=== PATIENT | male | born 1990 | race Caucasian/White ===

== ENCOUNTER 2016-12-25 14:07 | Inpatient (IN) | payer BC, OTHER ==
[~2016-12-25] VITALS: Ht 185.4 cm; Wt 77.1 kg
[2016-12-25 20:15] VITALS: BP 128/78
[2016-12-25] MEDS ORDERED: BUPRENORPHINE HCL 2 MG TAB.SUBL SL PRN (20:15)
[2016-12-25] MEDS ORDERED: DICYCLOMINE HCL 20 MG TABLET PO PRN (20:15)
[2016-12-25] MEDS ORDERED: LORAZEPAM 2 MG/1 ML VIAL IM PRN (20:15)
[2016-12-25] MEDS ORDERED: MIRALAX 17 GM POWD.PACK PO PRN (20:15)
[2016-12-25] MEDS ORDERED: diphenhydrAMINE 50 MG CAPSULE PO PRN (20:15)
[2016-12-25] MEDS ORDERED: PROMETHAZINE HCL 25 MG/1 ML VIAL IM PRN (20:15)
[2016-12-25] MEDS ORDERED: ACETAMINOPHEN 325 MG TABLET PO PRN (20:15)
[2016-12-25] MEDS ORDERED: METHOCARBAMOL 750 MG TABLET PO PRN (20:15)
[2016-12-25] MEDS ORDERED: DIAZEPAM 5 MG TABLET PO PRN (20:15)
[2016-12-25] MEDS ORDERED: MAG HYDROX/AL HYDROX/SIMETH 30 ML LIQUID UDC PO PRN (20:15)
[2016-12-25] MEDS ORDERED: DIAZEPAM 10 MG TABLET PO PRN ×2 (20:15)
[2016-12-25] MEDS ORDERED: MAGNESIUM HYDROXIDE 30 ML LIQUID UDC PO PRN (20:15)
[2016-12-25] MEDS ORDERED: HYDROXYZINE PAMOATE 25 MG CAPSULE PO PRN (20:15)
[2016-12-25] MEDS ORDERED: CLONIDINE HCL 0.1 MG TABLET PO PRN (20:15)
[2016-12-25] MEDS ORDERED: LOPERAMIDE HCL 2 MG CAPSULE PO PRN ×2 (20:15)
--- NOTE | 2016-12-25 20:15 | NUR ---
ADMISSION NOTE: Patient is a 26 y.o male admitted at [facility] at approximately 2015pm of 12/25/16 for medically supervised withdrawal from Opiate & Benzo. Body search done and skin check performed in Room 323, no contraband found. Pt is 6'1" tall and weighs 170 lbs in a standing scale. Pt is cooperative during assessment. Patient is oriented to floor unit and room. Patient follows a regular diet at home with no known food and drug allergies. Pt wishes to be full Code. Patient is alert & oriented x4, ambulatory with a steady gait. Speech is clear and audible. Patient appears anxious but cooperative during interview. No shortness of breath noted. Respiration even & unlabored. Abdomen soft & non-distended. Bowel sounds active in all four quadrants. Complaints of nausea, no episode of vomiting. Patient complains of 3/10 body aches, mild headache. Bilateral hand tremors noted. Pt complains of sweating & chills. Initial COWS 6 CIWA 6 noted. Vitals upon admission: B/P 128/78, AK 71, Temp 98.0, RR 12, O2Sat 97%. Patient noted with past medical history of Anxiety, Depression, history of seizure d/t benzo withdrawal (last one was May 2016). Pt denies any thoughts of suicide in the past. Pt currently denies SI/HI. Pt was able to provide urine sample for drug screen upon admission and is voiding clear yellow urine with no problems. Substance use: 1. Xanax- Pt has been using since 16 years old. Pt uses 1 gram daily intravenously for the past month. Last use was 1 gram today 12/25/16 @ noon . 2. Heroin- Pt has been using since 19 years old. Pt uses 10mg daily PO for the past month. Last use was 10mg today 12/25/16. 3. Marijuana- Pt has been smoking since 16 years old. Pt smokes on an intermittent non-daily basis in an unknown amount. Last use was a couple of puffs on the day of admission 12/25/16. 4. Methamphetamine. Pt has been using since 19 years old. Pt uses intravenously on an intermittent non-daily basis in an unknown amount. Pt stated he used " a little bit" on the day of admission 12/25/16. Treatment History: [facility] in [place] ( Aug 2016 to Oct 2016) Patient denies being hospitalized in the last 30 days. Patient reports his longest period of sobriety was for 8 months from 2014 to 2015, pt unable to recall the month. Patient reports symptoms when he does not use as anxiety, body aches, nausea, seizures, runny nose, yawning, shaking & visual hallucinations. Patient smokes 20 cigarettes daily. Patient refused flu & pneumonia vaccines, educated patient risk & benefits but still refused. Patient does not have a PCP. Urine drug screen came back positive for Opiate & Cannabinoids. Fall & Seizure precautions are in place. All needs attended & met. Safety precautions are in place. Bed locked in lowest position. Both side rails padded & up. Call light within pt's reach. Will continue to monitor. Dr. Kaye seen pt. Awaiting for admission order. Will continue to monitor patient.
[2016-12-25 20:29] LABS: *AMPHETAMINE, URINE POSITIVE (NEGATIVE); *BARBITURATE, URINE NEGATIVE (NEGATIVE); *CANNABINOID, URINE POSITIVE (NEGATIVE); *COCCAINE, URINE NEGATIVE (NEGATIVE); *OPIATE, URINE POSITIVE (NEGATIVE); *PHENCYCLIDINE SCREEN,URINE NEGATIVE (NEGATIVE)
[2016-12-25 20:57] LABS: HEMATOCRIT 48.2 % (40.0-50.0); HEMOGLOBIN 15.9 g/dL (14.0-18.0); MEAN CORPUSCULAR HEMOGLOBIN 29.4 uug (27.0-31.0); MEAN CORPUSCULAR HGB CONC 33 g/dL (32.0-37.0); PLATELET COUNT (AUTO) 292 K/uL (150-450); RED BLOOD CELL COUNT(AUTO) 5.42 MIL/uL (4.70-6.10); RED CELL DISTRIBUTION WIDTH 11.9 % (11.5-14.5); WHITE BLOOD COUNT (AUTO) 7.1 K/uL (4.0-11.2)
[2016-12-25 21:08] LABS: LYMPHOCYTES % (MANUAL) 24 % (20-40); MONOCYTES % (MANUAL) 5 % (2-10); NEUTROPHILS % (MANUAL) 71 % (42-75); PLATELET ESTIMATE ADEQUATE
[2016-12-25 21:17] LABS: ETHANOL < 3 MG/DL (0-0)
[2016-12-25 21:19] LABS: ALANINE AMINOTRANSFERASE 31 U/L (16-63); ALBUMIN 4.7 g/dL (3.4-5.0); ALKALINE PHOSPHATASE 90 U/L (50-136); ASPARTATE AMINOTRANSFERASE 39 U/L (15-37); BILIRUBIN,TOTAL 0.9 mg/dL (0.2-1.0); CALCIUM 9.4 mg/dL (8.5-10.1); CHLORIDE 103 mmol/L (98-107); GFR 91 mL/min (>60); GLUCOSE 116 mg/dL (74-106); MAGNESIUM 2.2 mg/dL (1.8-2.4); SODIUM SERUM 143 mmol/L (136-145); TOTAL PROTEIN, SERUM 8.2 g/dL (6.4-8.2); UREA NITROGEN, BLOOD 9 mg/dL (7-18)
[2016-12-25 21:23] LABS: THYROID STIMULATING HORMONE 0.627 mIU/mL (0.358-3.740)
[2016-12-25 21:24] LABS: CARBON DIOXIDE 33 mmol/L (21-32)
[2016-12-25 21:27] LABS: HIV-1 p24 ANTIGEN NON REACTIVE (NONREACTIVE); HIV-1/2 ANTIBODY NON REACTIVE (NONREACTIVE)
[2016-12-25] MEDS ORDERED: DIAZEPAM 10 MG TABLET PO ONE (22:00)
[2016-12-25] MEDS: ONDANSETRON ODT 4 MG TAB.RAPDIS SL PRN (23:05)
[2016-12-25] MEDS: IBUPROFEN 600 MG TABLET PO PRN (23:05)
--- NOTE | 2016-12-25 23:05 | NUR ---
PRN Motrin & Zofran Patient complained of 3/10 body aches, nausea & mild ache. PRN Motrin & Zofran given as ordered. Will continue to monitor.
[2016-12-25] MEDS ORDERED: TRAZODONE 50 MG TABLET PO PRN (23:15)
[2016-12-26] VITALS: BP 124/75
--- NOTE | 2016-12-26 00:05 | NUR ---
PRN Reassessment Patient asleep in bed and appears comfortable. No facial grimacing noted. No shortness of breath noted. Will continue to monitor patient.
[2016-12-26] MEDS ORDERED: LOPE2CAP PO (02:07)
[2016-12-26] MEDS ORDERED: TOPI25TA8 PO (02:07)
[2016-12-26] MEDS ORDERED: CLON0.1T PO (02:07)
[2016-12-26] MEDS ORDERED: HYDR50CA PO (02:07)
[2016-12-26] MEDS ORDERED: TRAZ-147 PO (02:07)
[2016-12-26] MEDS ORDERED: EMTR1TAB12 PO (02:07)
[2016-12-26] MEDS ORDERED: FLUT16SP BNOSTRILS (02:07)
[2016-12-26] MEDS ORDERED: BUPR300T54 PO (02:07)
[2016-12-26 04:00] VITALS: BP 114/70
--- NOTE | 2016-12-26 07:13 | NUR ---
END OF SHIFT NOTE: Patient is a 26 y/o male admitted last night 12/25/16 at approximately 2015 for Opiate and Benzo dependence. Patient reported using Xanax 10mg daily, Heroin IV 1 gram daily for the past month. Pt also smokes Marijuana and uses Meth IV with an unknown amount on an intermittent non-daily basis. Patient with past medical history of Anxiety, Depression, and hx of Seizure(last one was May 2016). Patient is on regular diet with no known food and drug allergies. Full Code status. Seizure and fall precaution. Skin intact. Patient was placed on a 4-day Valium and 4-day Subutex taper to be started today @ 0900. Last COWS 6 CIWA 6. PRN Zofran & PRN was given to pt during my shift and were effective. Pt remained compliant with therapeutic plan. Pt remained stable and vitals remains WNL. Pt slept for a total of 6 hours. Pt consumed 355ml of fluids. Voided 3x with no bowel movement. All needs attended & met. Safety precautions are in place. Will endorse pt to day shift nurse.
--- NOTE | 2016-12-26 07:45 | NUR ---
Start of shift note; Received report from night nurse. Patient is a 26 y/o male admitted on 12/25/16 for Benzo/Opiate dependence. Patient reported taking Xanax PO 10mg/daily for 1 month, Heroin IV 1gram/daily fro 1 month, intermittent use of marijuana and intermittent use of Meth IV with unknown dose. Patient was placed on 4 day Valium and 4 day Subutex taper to start today.patient's last CIWA is 6 and last COWS is 6. Will continue to monitor patient.
[2016-12-26 08:00] VITALS: BP 105/66
[2016-12-26] MEDS ORDERED: TUBERCULIN,PURIF.PROT.DERIV. 5 TU/0.1 ML TEST ID ONE (09:00)
[2016-12-26] MEDS: DIAZEPAM 10 MG TABLET PO SCH ×3 (09:24→21:15)
[2016-12-26] MEDS: BUPRENORPHINE HCL 2 MG TAB.SUBL SL SCH ×3 (09:25→21:16)
[2016-12-26] MEDS: GABAPENTIN 400 MG CAPSULE PO SCH ×3 (09:25→21:00)
[2016-12-26] MEDS: MULTIVITAMINS,THERAPEUTIC TABLET PO SCH (09:25)
[2016-12-26 12:00] VITALS: BP 128/75
[2016-12-26] MEDS ORDERED: HYDROXYZINE PAMOATE 25 MG CAPSULE PO PRN (12:00)
[2016-12-26] MEDS: buPROPion XL 150 MG TAB.SR.24H PO SCH (12:14)
[2016-12-26] MEDS: ONDANSETRON ODT 4 MG TAB.RAPDIS SL PRN (14:27)
--- NOTE | 2016-12-26 14:27 | NUR ---
PRN medication; Patient is complaining of nausea, PRN Zofran 4mg ODT given. Will continue to monitor patient.
--- NOTE | 2016-12-26 15:27 | NUR ---
Re-assessment; Patient denies Nausea and vomiting at this time. PRN medication is effective.
[2016-12-26 16:00] VITALS: BP 115/71
[2016-12-26] MEDS ORDERED: FLUTICASONE NS PRN (16:00)
--- NOTE | 2016-12-26 18:06 | NUR ---
End of shift; Patient is AOX4. Patient is a 26 y/o male admitted on 12/25/16 for Benzo/Opiate dependence. Patient reported taking Xanax PO 10mg/daily for 1 month, Heroin IV 1gram/daily fro 1 month, intermittent use of marijuana and intermittent use of Meth IV with unknown dose. Patient was placed on 4 day Valium and 4 day Subutex taper started today, no adverse reactions noted. Patient remained compliant with treatment plan. Medications were effective in reducing withdrawals symptoms. Met all needs.
--- NOTE | 2016-12-26 19:30 | NUR ---
START OF SHIFT NOTE: Patient is a 26 y/o male admitted last night 12/25/16 at approximately 2015 for Opiate and Benzo dependence. Patient reported using Xanax 10mg daily, Heroin IV 1 gram daily for the past month. Pt also smokes Marijuana and uses Meth IV with an unknown amount on an intermittent non-daily basis. Patient with past medical history of Anxiety, Depression, and hx of Seizure(last one was May 2016). Patient is on regular diet with no known food and drug allergies. Full Code status. Seizure and fall precaution. Skin intact. Patient is on a 4-day Valium and 4-day Subutex taper and tolerating well. Last COWS is 6 CIWA 4 noted. PRN Zofran was given to pt for nausea during day shift. Patient is alert & oriented x4. No shortness of breath noted. Respiration even & unlabored. Abdomen soft & non-distended. Bowel sounds active in all four quadrants. Pt complaints of nausea. No episode of vomiting noted. Patient has 5/10 leg and back pain. Pateint noted to be anxious and restless. Patient complains of sweating, chills and mild headache. Bilateral hand tremors felt. No hallucinations noted. Patient denies SI/HI. Safety precautions are in place. Bed locked in lowest position. Both side rails up. Call light within pt's reach. Will continue to monitor patient.
[2016-12-26 20:00] VITALS: BP 137/91
--- NOTE | 2016-12-26 21:00 | NUR ---
Refused medication Patient refused scheduled Gabapentin at 2100. Papa patient he does not really need it at this time. Explained to patient risk and benefits but still refused. Will continue to monitor patient.
[2016-12-26] MEDS: IBUPROFEN 600 MG TABLET PO PRN (21:16)
--- NOTE | 2016-12-26 21:16 | NUR ---
Prn Motrin Patient complained of 5/10 back and leg pain. Pt noted to be restless. PRN Motrin given as ordered. Will continue to monitor patient.
--- NOTE | 2016-12-26 22:16 | NUR ---
Prn Reassessment Patient verbalized relief from back and leg pain. 2/10 pain noted at this time. Patient appears comfortable lying in bed. PRN medication effective. Will continue to monitor patient.
[2016-12-27] VITALS: BP 126/75
[2016-12-27] MEDS: TRAZODONE 50 MG TABLET PO PRN (01:22)
--- NOTE | 2016-12-27 01:22 | NUR ---
Prn Trazodone Patient complains of insomnia. PRN Trazodone given as ordered. Patient lying in bed with no s/s of distress noted. Will continue to monitor patient.
[2016-12-27 04:00] VITALS: BP 125/77
--- NOTE | 2016-12-27 07:04 | NUR ---
Start of Shift Endorsement received from nightshift nurse. Pt is a 26 y/o male admitted for Xanax and Heroin dependence. Pt has been placed on a 4 day Valium and 4 day Subutex taper. Pt is moderately withdrawing at this time AEB CIWA 8, COWS 7. Pt received PRN Motrin and Trazodone. Pt slept 7 hours. PT is alert and oriented x4. VS WNL, Full Code. Remains compliant with medication and diet regimen. All needs have been met, All safety measures in place per hospital policy. Bed in lowest position, side rails up x2, call-light within reach. Will continue to monitor
--- NOTE | 2016-12-27 07:07 | NUR ---
END OF SHIFT NOTE: Patient is a 26 y/o male admitted last night 12/25/16 at approximately 2015 for Opiate and Benzo dependence. Patient reported using Xanax 10mg daily, Heroin IV 1 gram daily for the past month. Pt also smokes Marijuana and uses Meth IV with an unknown amount on an intermittent non-daily basis. Patient with past medical history of Anxiety, Depression, and hx of Seizure(last one was May 2016). Patient is on regular diet with no known food and drug allergies. Full Code status. Seizure and fall precaution. Skin intact. Patient is on a 4-day Valium and 4-day Subutex taper and tolerating well. COWS 7 CIWA 8. PRN Motrin for body aches & Trazodone for sleep were given to pt during my shift and were effective. Pt remained stable and vitals remains WNL. Pt slept for a total of 7 hours. Pt consumed 855 ml of fluids. Voided 3x with no bowel movement. All needs attended & met. Safety precautions are in place. Will endorse pt to day shift nurse.
[2016-12-27 08:16] VITALS: BP 111/80
[2016-12-27] MEDS ORDERED: BUPRENORPHINE HCL 2 MG TAB.SUBL SL SCH (09:00)
[2016-12-27] MEDS: DIAZEPAM 5 MG TABLET PO SCH ×4 (09:04→20:59)
[2016-12-27] MEDS: buPROPion XL 150 MG TAB.SR.24H PO SCH (09:04)
[2016-12-27] MEDS: MULTIVITAMINS,THERAPEUTIC TABLET PO SCH (09:04)
[2016-12-27] MEDS: GABAPENTIN 400 MG CAPSULE PO SCH ×3 (09:04→20:59)
[2016-12-27] MEDS: TRUVADA PO SCH (09:04)
[2016-12-27 12:00] VITALS: BP 108/58
[2016-12-27] MEDS: BUPRENORPHINE HCL 2 MG TAB.SUBL SL SCH ×2 (14:25→21:00)
[2016-12-27 14:27] LABS: HCV AB <0.1 s/co ratio (0.0-0.9); HEPATITIS B CORE AB, IgM Negative (Negative); HEPATITIS B SURFACE AG Negative (Negative)
[2016-12-27 16:00] VITALS: BP 112/54
--- NOTE | 2016-12-27 18:55 | NUR ---
end of Shift Endorsement given to nightshift nurse. Pt is a 26 y/o male admitted for Xanax and Heroin dependence. Pt has been placed on a 4 day Valium and 4 day Subutex taper. Pt is mildly withdrawing at this time AEB CIWA 3, COWS 5. No PRN medications were administered. 0900 Subutex was held due to low BP. Pt participated in groups and activities. Intake: 790ml, Void x3, BM x0. PT is alert and oriented x4. VS WNL, Full Code. Remains compliant with medication and diet regimen. All needs have been met, All safety measures in place per hospital policy. Bed in lowest position, side rails up x2, call-light within reach. Will continue to monitor
--- NOTE | 2016-12-27 19:30 | NUR ---
START OF SHIFT-- Pt is a 26 y/o male admitted for Xanax and Heroin dependence. Pt has been placed on a 4 day Valium and 4 day Subutex taper,tolerating well.Last CIWA 3, COWS 5. PT is alert and oriented x4. VS WNL, Full Code.NKA.PMH of anxiety,depression and seizure x 1 d/t benzo withdrawals. Pt is compliant with medication and diet regimen.No c/o pain or distress noted. All safety measures in place per hospital policy. Bed in lowest position, side rails up x2, call-light within reach. Will continue to monitor.
[2016-12-27 20:00] VITALS: BP 111/61
[2016-12-28] VITALS: BP 107/58
--- NOTE | 2016-12-28 04:00 | NUR ---
V/S,COWS AND CIWA REFUSED-- PT IN DEEP SLEEP.REFUSED V/S COWS AND CIWA.ALL SAFETY MEASURES IN PLACE.NO S/S OF DISTRESS NOTED.
--- NOTE | 2016-12-28 06:43 | NUR ---
END OF SHIFT-- Pt is a 26 y/o male admitted for Xanax and Heroin dependence.On regular diet,full code,no known allergies.PMH of anxiety,depression and seizures d/t benzo withdrawals.Pt has been placed on a 4 day Valium and 4 day Subutex taper. Pt is tolerating well.Last CIWA 1, COWS 2. No PRN medications were given last night. PT is alert and oriented x4. VS WNL, Full Code. Remains compliant with medication and diet regimen.Pt slept 9 hrs;fluid intake was 1100 mls,urine x 1. All needs have been met, All safety measures in place per hospital policy. Bed in lowest position, side rails up x2, call-light within reach. Will continue to monitor.
--- NOTE | 2016-12-28 07:07 | NUR ---
Start of Shift Endorsement received from nightshift nurse. Pt is a 26 y/o male admitted for Xanax and Heroin dependence. Pt has been placed on a 4 day Valium and 4 day Subutex taper. Pt is mildly withdrawing at this time AEB CIWA 2, COWS 1. Pt received did not receive any PRN medications. Pt reports sleeping 9 hours. PT is alert and oriented x4. VS WNL, Full Code. Remains compliant with medication and diet regimen. All needs have been met, All safety measures in place per hospital policy. Bed in lowest position, side rails up x2, call-light within reach. Will continue to monitor
[2016-12-28 08:00] VITALS: BP 92/63
[2016-12-28] MEDS: BUPRENORPHINE HCL 2 MG TAB.SUBL SL SCH ×3 (09:04→21:05)
[2016-12-28] MEDS: GABAPENTIN 400 MG CAPSULE PO SCH ×3 (09:04→21:00)
[2016-12-28] MEDS: buPROPion XL 150 MG TAB.SR.24H PO SCH (09:04)
[2016-12-28] MEDS: MULTIVITAMINS,THERAPEUTIC TABLET PO SCH (09:05)
[2016-12-28] MEDS: TRUVADA PO SCH (09:05)
[2016-12-28] MEDS: DIAZEPAM 5 MG TABLET PO SCH ×2 (09:05→14:59)
[2016-12-28 12:00] VITALS: BP 112/75
[2016-12-28 16:00] VITALS: BP 123/74
[2016-12-28] MEDS: ONDANSETRON ODT 4 MG TAB.RAPDIS SL PRN (17:07)
--- NOTE | 2016-12-28 19:19 | NUR ---
End of Shift Endorsement given to nightshift nurse. Pt is a 26 y/o male admitted for Xanax and Heroin dependence. Pt has been placed on a 4 day Valium and 4 day Subutex taper. Pt is mildly withdrawing at this time AEB CIWA 1, COWS 1. Pt received PRN Zofran at 1717 for reported emesis and nausea, administered Zofran. Medication was effective upon re-assessment. . Pt participated in group. Intake: 1500ml, Void x3, BM x0. PT is alert and oriented x4. VS WNL, Full Code. Remains compliant with medication and diet regimen. All needs have been met, All safety measures in place per hospital policy. Bed in lowest position, side rails up x2, call-light within reach. Will continue to monitor
--- NOTE | 2016-12-28 19:30 | NUR ---
START OF SHIFT NOTE: Patient is a 26 y/o male admitted last night 12/25/16 at approximately 2015 for Opiate and Benzo dependence. Patient reported using Xanax 10mg daily, Heroin IV 1 gram daily for the past month. Pt also smokes Marijuana and uses Meth IV with an unknown amount on an intermittent non-daily basis. Patient with past medical history of Anxiety, Depression, and hx of Seizure(last one was May 2016). Patient is on regular diet with no known food and drug allergies. Full Code status. Seizure and fall precaution. Skin intact. Patient is on a 4-day Valium and 4-day Subutex taper and tolerating well. Last COWS is 1 CIWA 1 noted. PRN Zofran was given to pt for nausea during day shift. Pt noted with 1 episode of vomiting during day shift. Patient is alert & oriented x4. No shortness of breath noted. Respiration even & unlabored. Abdomen soft & non-distended. Bowel sounds active in all four quadrants. Pt complaints of nausea. Patient has 4/10 body aches & Patient complains of stomach cramps, sweating, chills and mild headache. Bilateral hand tremors felt. No hallucinations noted. Patient denies SI/HI. Safety precautions are in place. Bed locked in lowest position. Both side rails up. Call light within pt's reach. Will continue to monitor patient.
[2016-12-28 20:00] VITALS: BP 109/69
[2016-12-28] MEDS ORDERED: DIAZEPAM 5 MG TABLET PO SCH (21:00)
[2016-12-28] MEDS: IBUPROFEN 600 MG TABLET PO PRN (21:05)
--- NOTE | 2016-12-28 21:05 | NUR ---
PRN Motrin & Bentyl Patient complaining of 4/10 body ache, mild headache & stomach cramps. Patient noted to be restless. PRN Bentyl & Motrin given as ordered. Will monitor for effectiveness of medication.
--- NOTE | 2016-12-28 22:05 | NUR ---
PRN Reassessment Patient verbalized relief from pain & discomfort. Patient appears calm & comfortable lying in bed. PRN medication effective. Will continue to monitor patient.
[2016-12-29] VITALS: BP 108/56
[2016-12-29] MEDS: TRAZODONE 50 MG TABLET PO PRN (00:21)
--- NOTE | 2016-12-29 00:21 | NUR ---
Prn Trazodone Patient complains of insomnia. PRN Trazodone given as ordered. Patient lying in bed with no s/s of distress noted. Will continue to monitor patient.
--- NOTE | 2016-12-29 04:00 | NUR ---
Vitals/Cows/Ciwa deferred Patient refused vitals at this time. Patient asleep in bed and appears comfortable. No shortness of breath noted. Respiration even & unlabored. Will continue to monitor.
--- NOTE | 2016-12-29 07:13 | NUR ---
END OF SHIFT NOTE: Patient is a 26 y/o male admitted 12/25/16 for Opiate and Benzo dependence. Patient reported using Xanax 10mg daily, Heroin IV 1 gram daily for the past month. Pt also smokes Marijuana and uses Meth IV with an unknown amount on an intermittent non-daily basis. Patient with past medical history of Anxiety, Depression, and hx of Seizure(last one was May 2016). Patient is on regular diet with no known food and drug allergies. Full Code status. Seizure and fall precaution. Skin intact. Patient is on a 4-day Valium and 4-day Subutex taper and tolerating well. Last COWS 5 CIWA 5. PRN Motrin for body aches, Bentyl for stomach cramps & Trazodone for sleep were given to pt during my shift and were effective. Pt remained stable and vitals remains WNL. Pt remained compliant with treatment plan Pt slept for a total of 7 hours. Pt consumed 1000 ml of fluids. Voided 2x with 1x bowel movement. All needs attended & met. Safety precautions are in place. Will endorse pt to day shift nurse.
--- NOTE | 2016-12-29 07:53 | NUR ---
BEGINNING OF SHIFT Patient endorsement report received from field administrator nurse, all pertinent information discussed. patient is a 26 year old male admitted on 12/25/2016 with admitting Dx: bzo/opiate dependence. Patient with substance use history of: Xanax po 10mg a day for one month, heroin iv 1 gram daily for one month, marijuana unknown amount intermittent amt on a daily basis for one month, and methamphetamine iv unknown amount intermitted non daily basis for one month, patient placed a 4 day day Valium and 4 day Subutex taper and is currently on day 4 of taper, as per field administrator patient with last cow score of: 5 and last ciwa score of: 5, and slept for 7 hours. Patient in bed with eyes closed respirations even and unlabored, received PRN: Bentyl, trazodone, and Motrin, per field administrator medication effective, will educated regarding plan of care for the day and medication with regimen, and discharge instructions. with good verbal understanding. safety measures in place. call light with in reach, will construes to monitor closely.
[2016-12-29 08:13] VITALS: BP 111/65
[2016-12-29] MEDS: TRUVADA PO SCH (08:47)
[2016-12-29] MEDS: MULTIVITAMINS,THERAPEUTIC TABLET PO SCH (08:47)
[2016-12-29] MEDS: DIAZEPAM 2 MG TABLET PO SCH ×2 (08:47→21:00)
[2016-12-29] MEDS: buPROPion XL 150 MG TAB.SR.24H PO SCH (08:47)
[2016-12-29] MEDS: BUPRENORPHINE HCL 2 MG TAB.SUBL SL SCH ×2 (08:48→21:00)
[2016-12-29] MEDS: GABAPENTIN 400 MG CAPSULE PO SCH ×3 (08:51→21:00)
[2016-12-29] MEDS ORDERED: DIAZEPAM 5 MG TABLET PO SCH (09:00)
[2016-12-29 12:12] VITALS: BP 118/72
[2016-12-29 17:22] VITALS: BP 112/68
--- NOTE | 2016-12-29 18:54 | NUR ---
END OF SHIFT Patient alert and oriented x4, compliant with therapeutic plan of care, vital signs with in normal limits during shift. Patient continues on Valium and Subutex taper as ordered, is currently on day 4 of taper well tolerated, no ASE. Patient with admitting Dx: bzo/opiate dependence. 0900 assessment patient presented with: c/o chills, moist eyes, tremors that can be felt but not seen, mild anxiety and barely sweating and head fullness with cow score of: 4 and ciwa score of: 5; 1300 assessment patient presented with: c/o chills, moist eyes, tremors that can be felt but not seen, mild anxiety and mild head fullness with cow score of: 4 and ciwa score of: 4: 1700 assessment patient presented with moist eyes, tremors benitez can be felt but not seen, and mild anxiety with cow score of: 3 and ciwa score of: 2. PPD was read during shift, negative. Patient was administered no PRNs during shift. Patient encouraged increase in PO fluid intake as tolerated. Patients abdomen is soft and non distended, bowel sounds heard in all quadrats. no episodes of N/V/D noted. Safety measures in place. call light with in reach, patient endorsed to night shift manager nurse, all pertinent information discussed.
--- NOTE | 2016-12-29 19:30 | NUR ---
START OF SHIFT-- Patient 26 Y/O male,admitted for opiate and benzo dependency;A/O x4, compliant with therapeutic plan of care, vital signs with in normal limits . Patient continues on Valium and Subutex taper as ordered, is currently on day 4 of taper well tolerated, no A/R noted. NKA,FULL CODE and regular diet. Patient received in room ,pleasant and cooperative on approach.Last COWS 3,CIWA 2.Patient encouraged increase in PO fluid intake as tolerated. Patients abdomen is soft and non distended, bowel sounds heard in all quadrats. no episodes of N/V/D noted. Safety measures in place.Bed is locked in lowest position,side rails up and padded x 2, Call light is within reach,will continue to monitor.
[2016-12-29 20:00] VITALS: BP 107/64
--- NOTE | 2016-12-30 | NUR ---
Vitals/Cows/Ciwa refused-- Patient refused vitals at this time. Patient sleeping in bed and appears comfortable. No shortness of breath noted. Respiration even & unlabored. Will continue to monitor.
--- NOTE | 2016-12-30 06:49 | NUR ---
END OF SHIFT--- Patient is 26 Y/O male,admitted for opiate and benzo dependency;A/O x4, compliant with therapeutic plan of care, vital signs with in normal limits . Patient continues on Valium and Subutex taper as ordered, is currently on day 4 of taper well tolerated, no A/R noted. NKA,FULL CODE and regular diet. Patient received in room ,pleasant and cooperative on approach.Last COWS 3,CIWA 2.Patient encouraged increase in PO fluid intake as tolerated. Patients abdomen is soft and non distended, bowel sounds heard in all quadrants. NO PRN meds given last night.Pt slept 9 hrs;fluid intake 355 mls,urine x 1. Safety measures in place.Bed is locked in lowest position,side rails up and padded x 2, Call light is within reach,will continue to monitor.
--- NOTE | 2016-12-30 07:44 | NUR ---
BEGINNING OF SHIFT Patient endorsement report received from bottle house pumper nurse, all pertinent information discussed. patient is a 26 year old male admitted on 12/25/2016 with admitting Dx: bzo/opiate dependence. Patient with substance use history of: Xanax po 10mg a day for one month, heroin iv 1 gram daily for one month, marijuana unknown amount intermittent amt on a daily basis for one month, and methamphetamine iv unknown amount intermitted non daily basis for one month, patient placed a 4 day day Valium and 4 day Subutex taper, as per bottle house pumper patient with last cow score of: 3 and last ciwa score of: 2, and slept for 9 hours. Patient in bed with eyes closed respirations even and unlabored, received no PRNs, per bottle house pumper medication effective, will educated regarding plan of care for the day and medication with regimen, with good verbal understanding. safety measures in place. call light with in reach, will construes to monitor closely.
[2016-12-30 08:18] VITALS: BP 101/67
[2016-12-30] MEDS: GABAPENTIN 400 MG CAPSULE PO SCH ×3 (09:20→20:24)
[2016-12-30] MEDS: MULTIVITAMINS,THERAPEUTIC TABLET PO SCH (09:20)
[2016-12-30] MEDS: TRUVADA PO SCH (09:21)
[2016-12-30] MEDS: buPROPion XL 150 MG TAB.SR.24H PO SCH (09:21)
[2016-12-30 12:17] VITALS: BP 110/72
[2016-12-30 17:00] VITALS: BP 122/78
--- NOTE | 2016-12-30 19:09 | NUR ---
END OF SHIFT Patient alert and oriented x4, compliant with therapeutic plan of care, vital signs with in normal limits during shift. Patient completed Valium and Subutex taper as ordered last dose administered today, well tolerated, no ASE. Patient with admitting Dx: bzo/opiate dependence. 0900 assessment patient presented with: moist eyes, tremors that can be felt but not seen, mild anxiety with cow scor eof: 3 and ciwa score of: 2; 1300 assessment patient presented with tremors that can be felt but not seen, and ciwa score of: 2; 1700 assessment patient presented with: mild anxiety and mild agitation with cow score of: 1 and ciwa score of: 2. Patient was administered no PRNs during shift. Patient encouraged increase in PO fluid intake as tolerated. Patients abdomen is soft and non distended, bowel sounds heard in all quadrats. no episodes of N/V/D noted. patient is scheduled for discharge tomorrow, noted self motivated towards sobriety. Safety measures in place. call light with in reach, patient endorsed to retail shift supervisor nurse, all pertinent information discussed.
[2016-12-30 19:17] LABS: *AMPHETAMINE, URINE NEGATIVE (NEGATIVE); *BARBITURATE, URINE NEGATIVE (NEGATIVE); *CANNABINOID, URINE NEGATIVE (NEGATIVE); *COCCAINE, URINE NEGATIVE (NEGATIVE); *OPIATE, URINE NEGATIVE (NEGATIVE); *PHENCYCLIDINE SCREEN,URINE NEGATIVE (NEGATIVE)
--- NOTE | 2016-12-30 19:30 | NUR ---
START OF SHIFT--- Patient is 26 Y/O male,admitted for opiate and benzo dependency;A/O x4, compliant with therapeutic plan of care, vital signs within normal limits . Valium and Subutex tapers completed today.Pt is scheduled to be discharged tomorrow,appears to be anxious about his DC.NKA,FULL CODE and regular diet. Patient received in room ,pleasant and cooperative on approach.Last COWS 1,CIWA 2. Safety measures in place.Bed is locked in lowest position,side rails up x 2, Call light is within reach,will continue to monitor
[2016-12-30 20:00] VITALS: BP 128/91
[2016-12-30] MEDS: TRAZODONE 50 MG TABLET PO PRN (21:59)
--- NOTE | 2016-12-30 22:00 | NUR ---
PRN MEDS-- PRN VISTARIL AND TRAZODONE GIVEN ORDERED FOR C/O ANXIETY AND INSOMNIA PER PT REQUEST.WILL MONITOR.
[2016-12-30] MEDS ORDERED: Gabapentin PO (22:18)
[2016-12-30] MEDS ORDERED: HYDR-3895 PO (22:18)
[2016-12-30] MEDS ORDERED: TRAZ-144 PO (22:18)
[2016-12-30] MEDS ORDERED: Ibuprofen PO (22:18)
--- NOTE | 2016-12-30 23:00 | NUR ---
PRN F/U-- PRN MEDS ARE EFFECTIVE.PT LYING IN BED WITH EYES CLOSED.NO S/S OF DISTRESS NOTED.
--- NOTE | 2016-12-31 | NUR ---
PT REFUSED V/S,COWS,CIWA-- PT IS IN DEEP SLEEP.BREATHING EVEN AND NON LABORED,NO S/S OF DISTRESS NOTED.WILL CONTINUE TO MONITOR.
[2016-12-31 04:00] VITALS: BP 98/60
[2016-12-31 05:55] VITALS: BP 110/65
--- NOTE | 2016-12-31 06:15 | NUR ---
DISCHARGE NOTE-- PT DISCHARGED PER MD ORDER,VIA PRIVATE CAR,ACCOMPANIED BY [facility]SP[facility] TO [facility] IN [place], [place].ALL PERSONAL BELONGINGS AND PRESCRIPTIONS GIVEN TO PT AT TIME OF DISCHARGE.ALL DISCHARGE PAPERS SIGNED.PT AWAKE,A/O X 4.NO C/O PAIN OR DISTRESS NOTED .VITAL SIGNS STABLE: B/P=110/65,T=98.6,HR=77,R=16,C2 SAT=98%.PT DRESSED IN CLEAN STREET CLOTHES AND DISCHARGED IN STABLE CONDITION.
== END 2016-12-31 06:10 | disposition home or self-care (01) | DRG 895 ==
LOC: SRC 19:35
PROVIDERS: ADMIT Internal Medicine; ATTEND Internal Medicine
PROC: HZ2ZZZZ Detoxification Services for Substance Abuse Treatment (ICD-10-PCS; principal; 2016-12-25)
PROC: HZ31ZZZ Individual Counseling for Substance Abuse Treatment, Behavioral (ICD-10-PCS; 2016-12-26)
PROC: HZ41ZZZ Group Counseling for Substance Abuse Treatment, Behavioral (ICD-10-PCS; 2016-12-28)
DX: F13.230 Sedative, hypnotic or anxiolytic dependence with withdrawal, uncomplicated (principal); F33.1 Major depressive disorder, recurrent, moderate; E87.3 Alkalosis; F11.23 Opioid dependence with withdrawal; Z81.1 Family history of alcohol abuse and dependence; Z81.8 Family history of other mental and behavioral disorders; Z82.49 Family history of ischemic heart disease and other diseases of the circulatory system; F17.210 Nicotine dependence, cigarettes, uncomplicated; F41.9 Anxiety disorder, unspecified; G47.00 Insomnia, unspecified; Z86.69 Personal history of other diseases of the nervous system and sense organs; E86.0 Dehydration; F15.10 Other stimulant abuse, uncomplicated; R74.0 Nonspecific elevation of levels of transaminase and lactic acid dehydrogenase [LDH]
CPT/HCPCS: 36415; 70030-TC; 80307; 80324; 80349; 80361; 83735; 84443; 85025; 86580; 86592; 86705; 86803; 87340; 87806; A4663; G6040-TC; Q0162